=== PATIENT | male | born 1965 | race African-American/Black ===

== ENCOUNTER 2021-09-08 22:11 | Emergency (ER) | payer MEDICAID ==
[~2021-09-08] VITALS: Ht 170.2 cm; Wt 74.7 kg
[2021-09-09] MEDS ORDERED: LIDOCAINE HCL 1% 20ML VIAL (Pyxis) INJ INFIL ONE (00:45)
[2021-09-09] MEDS ORDERED: TETANUS, DIPHTHERIA, PERTUSSIS VAC/PF 0.5ML (>10YR OLD) IM ONE (01:00)
[2021-09-09 02:03] VITALS: BP 164/85
== END 2021-09-09 02:05 | disposition home or self-care (01) ==
LOC: ER 22:11
DX: S51.812A Laceration without foreign body of left forearm, initial encounter (principal); X58.XXXA Exposure to other specified factors, initial encounter; Y93.89 Activity, other specified; Y92.89 Other specified places as the place of occurrence of the external cause; Y99.8 Other external cause status
CPT/HCPCS: 12002; 90471; 90715; 99283; J3490